=== PATIENT | female | born 1990 | race Caucasian/White ===

== ENCOUNTER → 2021-11-26 12:56 | Outpatient (BNVA) | payer OTHER, SELFPAY | PROVIDERS: PCP Internal Medicine; Visit Provider Psychiatry & Neurology Neurology ==

== ENCOUNTER → 2022-12-30 12:15 | Outpatient (BNVA) | payer OTHER, SELFPAY | PROVIDERS: PCP Internal Medicine; Visit Provider Psychiatry & Neurology Neurology | DX: G47.411 Narcolepsy with cataplexy (principal); G47.33 Obstructive sleep apnea (adult) (pediatric) ==

== ENCOUNTER 2023-04-28 07:33 | Outpatient (AMB) | payer OTHER, SELFPAY ==
--- NOTE | 2023-04-28 07:37 | A.OFFVIS_ITS ---
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 Her baby is doing well at 6 mths but has COVID now . she stayed on Xyrem throughout her but was off provigil for 3 years while she was trying to become . Prior to that she was stable on provigil 200mg qam and q noon for 10 years. She was taking the Xyrem 500 mg per mL in 3 doses she takes 3 mg at bedtime she takes a 2nd dose 3 mg and a 3rd dose 3 mg.Now she is on Xywav 4.5mg grams 2 doses - started 2 days ago . she still has some fatigue she is compliant with her CPAP. SInce her sleep is good. she wants to try for another baby and does not want to switch to Xywav . No abnormal sleep behavior. she is on provigil 200 mg as needed. she reports mild difficulty with cognition. [facility] Medical History Anxiety Narcolepsy and cataplexy Obstructive sleep apnea Polycystic ovarian disease Surgical History Hx of cholecystectomy No pertinent past surgical history Family History Father HTN (hypertension) Mother High cholesterol Social History Alcohol intake: never Patient Tobacco Use Status: Never used Tobacco Use of substances other than those prescribed or required for medical reasons: No Physical Exam Const Other: speech normal mood stable General: cooperative Orientation/consciousness: patient oriented x3 Neuro General: patient oriented x3 Assessment & Plan Assessment & Plan (1) Narcolepsy and cataplexy: Code(s): G47.411 - Narcolepsy with cataplexy (2) Obstructive sleep apnea: Code(s): G47.33 - Obstructive sleep apnea (adult) (pediatric) Plan Continue prozac 40mg qd Xywav 500mg/ml 4.5 mg in 2 doses - wants to switch to xyrem when she is planning for her second Continue CPAP - compliance stressed Restart provigil 200mg qam and second dose 3 hrs later Coding Level of Care Code Tele Est Pt Level 4 (87932) Diagnoses Narcolepsy and cataplexy G47.411 Obstructive sleep apnea G47.33 Time Spent (min) 22
== END 2023-04-28 09:04 | disposition home or self-care (01) ==
PROVIDERS: Visit Provider Psychiatry & Neurology Neurology
DX: G47.411 Narcolepsy with cataplexy (principal); G47.33 Obstructive sleep apnea (adult) (pediatric)
CPT/HCPCS: 99214

== ENCOUNTER → 2023-04-28 07:33 | Outpatient (BNVA) | payer OTHER, SELFPAY | PROVIDERS: Visit Provider Psychiatry & Neurology Neurology | DX: G47.411 Narcolepsy with cataplexy (principal); G47.33 Obstructive sleep apnea (adult) (pediatric) ==

== ENCOUNTER 2023-12-15 07:14 | Outpatient (AMB) | payer OTHER, SELFPAY ==
[2023-12-15 07:41] VITALS: BP 112/80; PULSE 103; RESP 16; O2SAT 99; BMI 40.2
--- NOTE | 2023-12-15 07:41 | A.OFFVIS_ITS ---
Intake Vital Signs 12/15/23 07:41 12/15/23 08:26 Height 5 ft 2 in Weight 220 lb BMI 40.2 BP 112/80 118/82 Blood Pressure Location Rt brachial Lt brachial Position Sitting Sitting Respiration 16 Pulse 103 H Pulse Source Pulse Oximeter Pulse Oximetry (%) 99 Oxygen Delivery Method Room Air Intake Visit Reasons: f/u for XXywav 500mg/ml PA-LVM Intake Note: Pt presents to the office for med follow up. Label Fuser Tender Required: No Allergies No Known Allergies Allergy (Verified 12/15/23 07:41) Medication List - Last Reconciled 12/15/23 by Mary Mccarty MD buspirone 5 mg PO BID fluoxetine 40 mg PO DAILY metformin 500 mg PO DAILY modafinil (Provigil) 1 tab qam and second tab 3 hrs later orally every morning; omeprazole 20 mg PO BID sodium,calcium,mag,pot oxybate 0.5 gram/mL (Xywav) 4.5 grams (9 mL) PO BID HPI HPI Comments History of Present Illness Details 33-year-old female with narcolepsy with cataplexy and obstructive sleep apnea calls for follow-up. Her baby is doing well 14 months she is on Xywav 4.5 gm 2 times a night ans is doing well. she stayed on Xyrem throughout her but was off provigil for 3 years while she was trying to become . Prior to that she was stable on provigil 200mg qam and q noon for 10 years. she is compliant with her CPAP. SInce her sleep is good. No abnormal sleep behavior. she reports mild difficulty with cognition- very concerned. [facility] Medical History (Updated 12/15/23 @ 08:03 by Mary Mccarty MD) Memory loss Pineal gland cyst Anxiety Obstructive sleep apnea Polycystic ovarian disease Narcolepsy and cataplexy Surgical History Hx of cholecystectomy No pertinent past surgical history Family History Father HTN (hypertension) Mother High cholesterol Social History Alcohol intake: never Patient Tobacco Use Status: Never used Tobacco Questionnaire [place] Sleepiness Scale Questions Sitting and reading: would never doze Watching TV: slight chance of dozing Sitting inactive in a theater, movie etc.: slight chance of dozing As a passenger in a car for an hour without break: moderate chance of dozing Lying down in the afternoon when circumstances permit: high chance of dozing Sitting and talking to someone: would never doze Sitting quietly after lunch without alcohol: slight chance of dozing In a car, while stopped for a few minutes in the traffic: would never doze ESS < 10: normal, ESS > 12: pathologic: 8 Physical Exam Vital Signs: Last Vital Signs Pulse 103 H 12/15/23 07:41 Resp 16 12/15/23 07:41 BP 112/80 12/15/23 07:41 Pulse Ox 99 12/15/23 07:41 Oxygen Delivery Method Room Air 12/15/23 07:41 BMI result Body Mass Index 40.2 Const General: cooperative and comfortable Nutritional Appearance: obese Orientation/consciousness: patient oriented x3 Eyes Pupils: Equal, round and reactive pupils present Neuro General: patient oriented x3, tone normal, moves all extremities and no focal motor deficits Cranial nerves: Yes Facial sensation intact/muscles of mastication intact, Yes Equal, round and reactive pupils present, Yes Bilaterally intact EOM present, Yes Nystagmus not present, Yes Normal facial strength present, Yes Midline tongue present and Yes Symmetric palate elevation present Cognition (Neuro): normal cognition Gait exam (Neuro): Normal gait present Orientation What is the (year) (season) (date) (day) (month)?: year, season, day and month Where are we (state) (county) (town or city) (hospital) (floor)?: state, county, town or city, hospital/clinic and floor Registration Name of 3 unrelated objects clearly and slowly, then ask patient to repeat all 3 of them. (1st repeat determines score. Make sure they can repeat all three): object 1, object 2 and object 3 Attention & Calculation (CHOOSE ONE) Spell WORLD backwards (DLROW): 5 letters Recall Ask patient to repeat the 3 items from question #3.: object 1, object 2 and object 3 Language Show patient a wristwatch & ask what it is. Repeat for pencil.: watch and pencil Ask the patient to repeat the phrase 'No ifs, ands, or buts' after you.: correct Ask the patient to 'take a piece of paper with their right hand' 'fold paper in half' 'place paper on floor': take paper in right hand, fold paper in half and place paper on floor Print the sentence 'CLOSE YOUR EYES' on a piece. If patient actually closes eyes then score.: followed written direction Give patient a blank piece of paper & ask to write a sentence. Score if it contains a noun & verb.: sentence contains subject and verb Ask patient to copy figure of intersecting pentagons exactly. Score if all 10 angles & 2 intersects are included.: all 10 angles present & 2 are intersected Score Score: 29 Assessment & Plan Assessment & Plan (1) Narcolepsy and cataplexy: Code(s): G47.411 - Narcolepsy with cataplexy (2) Obstructive sleep apnea: Code(s): G47.33 - Obstructive sleep apnea (adult) (pediatric) (3) Pineal gland cyst: Code(s): E34.8 - Other specified endocrine disorders Plan Continue prozac 40mg qd Xywav 500mg/ml 4.5 mg in 2 doses - wants to switch to xyrem when she is planning for her second Continue CPAP - compliance stressed I will check her Vit B 12, ESR TSH VIT D CBC CMP Hg A 1 c Orders: Orders Comprehensive Met. Panel Today R41.3 - Other amnesia Complete Blood Count Auto Diff Today R41.3 - Other amnesia MR head/brain wo con Today E34.8 - Other specified endocrine disorders Erythrocyte Sedimentation Rate Today R41.3 - Other amnesia TSH reflex Free T4 Today R41.3 - Other amnesia Vitamin B12 and Folate Today R41.3 - Other amnesia AMB Hemoglobin A1c Today R41.3 - Other amnesia, Z13.9 - Encounter for screening, unspecified Medications: Discontinued modafinil (Provigil) Discontinued Reason: Patient no longer taking 1 tab qam and second tab 3 hrs later orally every morning; 60 tabs 5RF Coding Level of Care Code Est Pt Level 5 (02275) Diagnoses Narcolepsy and cataplexy G47.411 Obstructive sleep apnea G47.33 Pineal gland cyst E34.8
[2023-12-15 08:26] VITALS: BP 118/82
== END 2023-12-15 08:23 | disposition home or self-care (01) ==
PROVIDERS: PCP Internal Medicine; Visit Provider Psychiatry & Neurology Neurology
DX: G47.411 Narcolepsy with cataplexy (principal); G47.33 Obstructive sleep apnea (adult) (pediatric); E34.8 Other specified endocrine disorders
CPT/HCPCS: 99214

== ENCOUNTER → 2023-12-15 07:14 | Outpatient (BNVA) | payer OTHER, SELFPAY | PROVIDERS: PCP Internal Medicine; Visit Provider Psychiatry & Neurology Neurology ==

== ENCOUNTER 2023-12-15 08:07 | Outpatient (REF) | payer OTHER, SELFPAY ==
[2023-12-15 17:43] LABS: MANUAL DIFF FLAG NO
[2023-12-15 18:19] LABS: Alanine Aminotransferase 18 U/L (0-31); Albumin Level 4.5 g/dL (3.5-5.0); Alkaline Phosphatase 83 U/L (39-117); Anion Gap 13 (12-20); Aspartate Amino Transferase 13 U/L (5-31); Bilirubin Total 0.3 mg/dL (0.0-1.0); Blood Urea Nitrogen 16 mg/dL (9-16); Calcium 10.1 mg/dL (8.4-10.2); Carbon Dioxide 27 mmol/L (22-29); Chloride 105 mmol/L (96-108); Estimated Glomerular Filt Rate > 60; Glucose Random 92 mg/dL (60-115); Potassium 4.1 mmol/L (3.3-5.1); Sodium 141 mmol/L (135-145)
[2023-12-15 18:29] LABS: Basophils Absolute Auto 0.1 X10*3/uL (0.0-0.2); Basophils Percent Auto 0.6 % (0-2); Eosinophils Absolute Auto 0.4 X10*3/uL (0.0-0.4); Eosinophils Percent Auto 4.3 % (0-4); Hematocrit 41.9 % (37.0-47.0); Hemoglobin 14.4 g/dl (12.0-16.0); Imm Gran Abs Auto 0.03 X10*3/uL (0.00-0.03); Imm Gran Pct Auto 0.4 % (0.0-0.4); Mean Corpuscular HGB Conc 34.4 g/dl (31.0-35.0); Mean Corpuscular Hemoglobin 29.8 pg (27.0-33.0); Mean Corpuscular Volume 86.6 fL (80.0-98.0); Mean Platelet Volume 10.6 fL (9.4-12.3); Monocytes Absolute Auto 0.4 X10*3/uL (0.1-1.2); Neutrophils Absolute Auto 5.6 x10*3/uL (2.0-8.3); Neutrophils Percent Auto 65.7 % (45-73); Platelet Count 323 X10*3/uL (160-400); Red Blood Count 4.84 X10*6/uL (4.20-5.50); Red Cell Distribution Width 11.9 % (11.0-16.0); White Blood Count 8.5 X10*3/uL (4.8-10.8)
[2023-12-15 18:33] LABS: TSH reflex Free T4 1.24 uIU/mL (0.32-4.0)
[2023-12-15 19:00] LABS: Folate > 20.0 ng/mL (> or = 4.0); Vitamin B12 436 pg/mL (200-900)
[2023-12-15 19:10] LABS: Erythrocyte Sedimentation Rate 17 MM/HR (0-20)
== END 2023-12-15 08:08 | disposition home or self-care (01) ==
LOC: HO.HKASLDS 08:07
PROVIDERS: Visit Provider Psychiatry & Neurology Neurology
DX: R41.3 Other amnesia (principal); G47.411 Narcolepsy with cataplexy; G47.33 Obstructive sleep apnea (adult) (pediatric); E34.8 Other specified endocrine disorders
CPT/HCPCS: 36415; 80053; 82607; 82746; 84443; 85025; 85652

== ENCOUNTER 2024-04-23 13:52 | Outpatient (AMB) | payer OTHER, SELFPAY ==
--- NOTE | 2024-04-23 14:01 | A.OFFVIS_ITS ---
Vital Signs 04/23/24 14:02 Height 5 ft 2 in Weight 222 lb BMI 40.6 BP 120/70 Blood Pressure Location Rt brachial Position Sitting Respiration 16 Pulse 86 Pulse Source Pulse Oximeter Pulse Oximetry (%) 96 Oxygen Delivery Method Room Air Intake Visit Reasons: 4 Month F/U - Confirmed Intake Note: Pt presents to the office for a 4 month follow up for narcolepsy and cataplexy. Order Fulfillment Specialist Required: No Allergies No Known Allergies Allergy (Verified 04/23/24 14:02) HPI Comments Details: 33-year-old female with narcolepsy with cataplexy and obstructive sleep apnea comes for follow-up. Her baby is doing well 18 months Patient is again 17 weeks she wants to continue but has concerns about glucose control . she is on Xywav 4.5 gm 2 times a night and is doing well.she feels xyrem was better. she stayed on Xyrem throughout her . she is compliant with her CPAP. SInce her sleep is good. No abnormal sleep behavior. [facility] Medical History Pineal gland cyst Memory loss Pineal gland cyst Anxiety Obstructive sleep apnea Polycystic ovarian disease Narcolepsy and cataplexy Surgical History Hx of cholecystectomy No pertinent past surgical history Family History Father HTN (hypertension) Mother High cholesterol Social History Alcohol intake: never Patient Tobacco Use Status: Never used Tobacco Physical Exam Vital Signs: Last Vital Signs Pulse 86 04/23/24 14:02 Resp 16 04/23/24 14:02 BP 120/70 04/23/24 14:02 Pulse Ox 96 04/23/24 14:02 Oxygen Delivery Method Room Air 04/23/24 14:02 BMI result Body Mass Index 40.6 Const General: cooperative and comfortable Nutritional Appearance: obese Orientation/consciousness: patient oriented x3 Eyes Pupils: Equal, round and reactive pupils present Neuro General: patient oriented x3, tone normal, moves all extremities and no focal motor deficits Cranial nerves: Yes Facial sensation intact/muscles of mastication intact, Yes Equal, round and reactive pupils present, Yes Bilaterally intact EOM present, Yes Nystagmus not present, Yes Normal facial strength present, Yes Midline t ongue present and Yes Symmetric palate elevation present Cognition (Neuro): normal cognition Gait exam (Neuro): Normal gait present Assessment & Plan Assessment & Plan (1) Narcolepsy and cataplexy: Code(s): G47.411 - Narcolepsy with cataplexy Category: Medical (2) Obstructive sleep apnea: Code(s): G47.33 - Obstructive sleep apnea (adult) (pediatric) Category: Medical (3) Pineal gland cyst: Code(s): E34.8 - Other specified endocrine disorders Category: Medical Plan Continue prozac 40mg qd Xywav 500mg/ml 4.5 mg in 2 doses Continue CPAP - compliance stressed will consider repeat sleep test Coding Level of Care Code Est Pt Level 4 (35678) Diagnoses Narcolepsy and cataplexy G47.411 Obstructive sleep apnea G47.33 Pineal gland cyst E34.8
[2024-04-23 14:02] VITALS: BP 120/70; PULSE 86; RESP 16; O2SAT 96; BMI 40.6
== END 2024-04-23 14:24 | disposition home or self-care (01) ==
PROVIDERS: PCP Internal Medicine; Visit Provider Psychiatry & Neurology Neurology
DX: G47.411 Narcolepsy with cataplexy (principal); G47.33 Obstructive sleep apnea (adult) (pediatric); E34.8 Other specified endocrine disorders
CPT/HCPCS: 99214

== ENCOUNTER → 2024-04-23 13:52 | Outpatient (BNVA) | payer OTHER, SELFPAY | PROVIDERS: PCP Internal Medicine; Visit Provider Psychiatry & Neurology Neurology ==

== ENCOUNTER 2024-11-26 13:41 | Outpatient (AMB) | payer OTHER, SELFPAY ==
--- NOTE | 2024-11-26 13:48 | A.OFFVIS_ITS ---
Vital Signs 11/26/24 13:50 Height 5 ft 2 in Weight 214 lb BMI 39.1 BP 122/84 Blood Pressure Location Rt brachial Position Sitting Pulse 88 Pulse Source Pulse Oximeter Pulse Oximetry (%) 98 Oxygen Delivery Method Room Air Intake Visit Reasons: 6 Month F/U Intake Note: Patient following up on narcolepsy compliance report 11/25/24 scanned. Allergies No Known Allergies Allergy (Verified 11/26/24 13:52) Medication List - Last Reconciled 11/26/24 by Mary Mccarty MD fluoxetine 40 mg PO DAILY metformin 500 mg PO DAILY omeprazole 20 mg PO BID sodium,calcium,mag,pot oxybate 0.5 gram/mL (Xywav) 4.5 grams (9 mL) PO BID HPI Comments Details: 34-year-old female with narcolepsy with cataplexy and obstructive sleep apnea comes for follow-up. Her baby is doing well 12years and her second daughter is 9 weeks. He rpregnancy was uneventful she is on Xywav 4.5 gm 2 times a night and is doing well. she is compliant with her CPAPBut because of ehr baby sometimes she falls asleep on the couch . No abnormal sleep behavior. [facility] Medical History Pineal gland cyst Memory loss Pineal gland cyst Anxiety Obstructive sleep apnea Polycystic ovarian disease Narcolepsy and cataplexy Surgical History Hx of cholecystectomy No pertinent past surgical history Family History Father HTN (hypertension) Mother High cholesterol Social History Alcohol intake: never Patient Tobacco Use Status: Never used Tobacco Physical Exam Vital Signs: Last Vital Signs Pulse 88 11/26/24 13:50 BP 122/84 11/26/24 13:50 Pulse Ox 98 11/26/24 13:50 Oxygen Delivery Method Room Air 11/26/24 13:50 BMI result Body Mass Index 39.1 Const General: cooperative and comfortable Nutritional Appearance: obese Orientation/consciousness: patient oriented x3 Neuro General: patient oriented x3, tone normal, moves all extremities and no focal motor deficits Cognition (Neuro): normal cognition Gait exam (Neuro): Normal gait present Assessment & Plan Assessment & Plan (1) Narcolepsy and cataplexy: Code(s): G47.411 - Narcolepsy with cataplexy Category: Medical (2) Obstructive sleep apnea: Code(s): G47.33 - Obstructive sleep apnea (adult) (pediatric) Category: Medical (3) Pineal gland cyst: Code(s): E34.8 - Other specified endocrine disorders Category: Medical Plan Continue prozac 40mg qd Xywav 500mg/ml 4.5 mg in 2 doses Continue CPAP - compliance stressed Repeat Home sleep test MRI brain to monitor pineal gland cyst . Orders: Orders RT home sleep study Today G47.33 - Obstructive sleep apnea (adult) (pediatric) MR head/brain wo/w con Today E34.8 - Other specified endocrine disorders Medications: Refilled sodium,calcium,mag,pot oxybate 0.5 gram/mL (Xywav) administer the first dose at bedtime and the second dose 2.5-4 hours later 4.5 grams (9 mL) PO BID 540 mL 3RF narcolepsy Coding Level of Care Code Est Pt Level 4 (70442) Complex EM visit Add On G2211 Diagnoses Narcolepsy and cataplexy G47.411 Obstructive sleep apnea G47.33 Pineal gland cyst E34.8
[2024-11-26 13:50] VITALS: BP 122/84; PULSE 88; O2SAT 98; BMI 39.1
--- OUTSIDE RECORDS SUMMARY | 2024-11-26 15:39 | XMS_ITS | Data Portability ---
Author Organization [facility]ay [facility], [address] Address [address] [place] [address] Care Team Providers Care Physics Instructor Name Role Phone [facility] Primary Care Provider Assessment No assessment recorded. Plan of Treatment Reminders Order Date Submit Date Provider Last Modified By Organization Details Last Modified Time Details Appointments None recorded. Lab None recorded. Referral None recorded. Procedures None recorded. Surgeries None recorded. Imaging None recorded. Medication Orders albuterol sulfate HFA 90 mcg/actuati on aerosol inhaler 2023 024 [facility]/Pharmacy #[id number], [address] [place] [address], [id number], 4 16:42:05 benzonatate 100 mg capsule 2022 023 [email or web address] 2 [facility]/Pharmacy #[id number], [address] [place] [address], [id number], 4 16:06:31 albuterol sulfate HFA 90 mcg/actuati on aerosol inhaler 2022 023 [facility]/Pharmacy #[id number], [address] [place] [address], [id number], 3 18:55:02 prednisone 20 mg tablet 2022 023 [email or web address] 2 [facility]/Pharmacy #[id number], [address] [place] [address], [id number], 4 16:08:23 Patient TargetsNo targets recorded. Patient Instructions Encounter Date Encounter Id Patient Instructions Last Modified By Organization Details Last Modified Time 07/01/2023 [id number] cough: care instructions Not available 07/01/2023 18:54:58 bronchitis: care instructions Not available 07/01/2023 18:54:57 07/26/2024 [id number] laryngitis: care instructions [email or web address] Not available 07/26/2024 16:42:03 Reason for Referral None Reported. Problems Name Problem SNOMED Code Status Onset Date Resolution Date Notes Provider Name and Address Organization Details Recorded Time Narcolepsy 66390141 Active 2022 ELGIN WATTS null, PA - [facility] 3 18:28:37 Obese 416154947 Active 2022 ELGIN SINOV null, PA - [facility] 3 18:28:45 Polycystic ovary syndrome 254078652 Active 2022 ELGINDima WATTS null, PA - [facility] 3 18:28:50 Anxiety 73531161 Active 2022 ELGIN STEFANIE null, PA - [facility] 3 18:28:57 Gestational diabetes mellitus 44496503 Active Rula Khan null, PA - [facility] 4 16:09:45 Respiratory tract congestion and cough 231778499 Active 2023 Cassandra Sauceda NP [address] [facility] [place], [address] [facility] - [facility] 4 16:41:23 Problem Notes None recorded. Procedures Surgical History Date Name Laterality Status Provider Name and Address Organization Details Recorded Time cholecystectomy completed ELGIN WATTS PA - [facility] 07/01/2023 18:31:34 Imaging Results None recorded. Procedure Notes None recorded. Medical Equipment None Reported. Allergies No known drug allergies Medications Name Sig Start Date Stop Date Status Note LastModified by Organization Details LastModified Time freestyle 28g lancets USE DIRECTED TO TEST BLOOD SUGAR FOUR TIMES A DAY DURING 07/26 completed Not Available Not Available Not Available fluoxetine 40 mg capsule TAKE 1 CAPSULE BY MOUTH EVERY DAY active Not Available Not Available No t Available buspirone 5 mg tablet TAKE 1 TABLET BY MOUTH TWICE A DAY FOR 30 DAYS 07/26 completed Not Available Not Available Not Available metformin 500 mg tablet TAKE 1 TABLET BY MOUTH EVERYDAY AT BEDTIME 07/26 completed Not Available Not Available Not Available azelastine 0.05 % eye drops INSTILL 1 DROP INTO AFFECTED EYE TWICE A DAY 07/01 completed Not Available Not Available Not Available nystatin 100,000 unit/mL oral suspension TAKE 5 ML BY MOUTH 4 TIMES A DAY FOR FOR 7 DAYS. SWISH AND SWALLOW 07/26 completed Not Available Not Available Not Available fluconazole 150 mg tablet TAKE ONE TABLET BY MOUTH ONCE A SINGLE DOSE 07/26 completed Not Available Not Available Not Available FreeStyle Lancets 28 gauge GLUCOSE MONITORIN G 4 TIMES A DAY DURING active Not Available Not Available No t Available prednisone 20 mg tablet Take 1 tablet every day by oral route for 5 days. 07/26 completed Not Available Not Available Not Available metronidazo le 500 mg tablet TAKE 1 TABLET BY MOUTH EVERY 12 HOURS FOR 7 DAYS 07/26 completed Not Available Not Available Not Available aspirin 81 mg tablet,jonathan yed release TAKE 2 TABLETS BY MOUTH EVERY DAY active Not Available Not Available No t Available amoxicillin 500 mg tablet TAKE 1 TABLET BY MOUTH TWICE A DAY FOR 10 DAYS 07/01 completed Not Available Not Available Not Available modafinil 200 mg tablet TAKE 1 TABLET BY MOUTH EVERY MORNING AND 1 TABLET 3 HOURS LATER 07/26 completed Not Available Not Available Not Available benzonatate 100 mg capsule Take 1 capsule 3 times a day by oral route for 5 days. 07/26 completed Not Available Not Available Not Available ursodiol 300 mg capsule TAKE 1 CAPSULE BY MOUTH 3 TIMES A DAY 07/26 completed Not Available Not Available Not Available omeprazole 20 mg capsule,del ayed release TAKE 1 CAPSULE BY MOUTH TWICE A DAY 07/26 completed Not Available Not Available Not Available aspirin 81 mg chewable tablet CHEW 2 TABLETS ONCE DAILY CONTINUE UNTIL 2 WEEKS POSTPARTU M 07/26 completed Not Available Not Available Not Available letrozole 2.5 mg tablet TAKE 1 TABLET BY MOUTH DAILY STARTING ON CYCLE DAY 3 AND ENDING ON CYCLE DAY 7. *NOT COVERED 07/26 completed Not Available Not Available Not Available albuterol sulfate HFA 90 mcg/actuati on aerosol inhaler Inhale 2 puffs 3 times a day by inhalatio n route as needed for 5 days. 2023 active Not Available Not Available Not Avai lable hydroxyzine HCl 10 mg tablet TAKE 1 TABLET BY MOUTH 4 TIMES A DAY FOR 14 DAYS 07/01 completed Not Available Not Available Not Available sodium oxybate 500 mg/mL oral solution 07/01 completed Not Available Not Available Not Available Alcohol Prep Pads PLEASE USE DIRECTED FOR GLUCOSE MONITORIN G FOUR TIMES DAILY active Not Available Not Available No t Available nitrofurant oin monohydrate /macrocryst als 100 mg capsule TAKE 1 CAPSULE BY MOUTH TWICE A DAY FOR 5 DAYS 07/01 completed Not Available Not Available Not Available FreeStyle Lite Meter kit active Not Available Not Available Not Available OneTouch Verio test strips USE TO TEST BLOOD SUGARS 4 TIMES DAILY active Not Available Not Available No t Available OneTouch Verio Flex Meter TO TEST 4X DAILY ICD active Not Available Not Available No t Available OneTouch Delica Plus Lancet 30 gauge TEST 4 TIMES A DAY 07/26 completed Not Available Not Available Not Available Xywav 0.5 gram/mL oral solution 07/26 completed Not Available Not Available Not Available Paxlovid 300 mg (150 mg x 2)-100 mg tablets in a dose pack FOLLOW PACKAGE INSTRUCTI ONS. ALL 3 TABS TAKEN TOGETHER TWICE DAILY FOR 5 DAYS, WITH OR WITHOUT FOOD 07/01 completed Not Available Not Available Not Available Vitals Date Recorded Body height Body mass index (BMI) Body weight Pain severity - 0-10 verbal numeric rating [Score] - Reported Respiratory rate Heart rate Body temperature Oxygen saturation Oxygen saturation in Arterial blood by Pulse oximetry Systolic blood pressure Diastolic blood pressure Provider Name and Address Organization Details Last Updated DateTime 3 157.48 cm 41 kg/m2 703827. 69 g 0 19 /min 87 /min 98.7 [degF] 98 % 98 % 120 mm[Hg] 76 mm[Hg] ELGIN WATTS PA - [facility] 3 18:34:53 Date Recorded Body height Body mass index (BMI) Body weight Oxygen saturation Oxygen saturation in Arterial blood by Pulse oximetry Heart rate Body temperature Respiratory rate Systolic blood pressure Diastolic blood pressure Provider Name and Address Organization Details Last Updated DateTime 4 157.48 cm 38.8 kg/m2 84577.5 8 g 97 % 97 % 78 /min 97.5 [degF] 18 /min 103 mm[Hg] 71 mm[Hg] Rula Khan [place] - [facility] 16:04:01 Social History Question Answer Notes LastModified by Organizat ion Details LastModified Time Tobacco Smoking Status Never Smoker ELGIN WILEYBISI almanza, PA - [facility] 07/01/2023 18:31:14 What Is Your Level Of Alcohol Consumption? None Information not available 07/01/2023 Are You Currently Employed? Yes [email or web address] Information not available 07/26/2024 Have You Had A Flu Shot This Season? Yes [email or web address] Information not available 07/26/2024 If No, Would You Like A Flu Shot Today? No [email or web address] Information not available 07/26/2024 What Was The Date Of Your Most Recent Tobacco Screening? 07/26/2024 [email or web address] Information not available 07/26/2024 What Is Your Relationship Status? [email or web address] Information not available 07/26/2024 Do You Use Any Illicit Or Recreational Drugs? No Information not available 07/01/2023 Have You Recently Traveled Abroad? No Information not available 07/01/2023 Do You Or Have You Ever Used Any Other Forms Of Tobacco Or Nicotine? No [email or web address] Information not available 07/26/2024 Sex: Unknown Functional Status None recorded. Mental Status None recorded. Family History Relationship Description Onset Age of this Age Resolved Age Notes LastModified by Organization Details LastModified Time Father Hypertensive disorder [email or web address] Not available 07/01 18:29:58 Mother Hyperlipidem ia [email or web address] Not available 07/26 16:10:18 Medical History No medical history recorded. Gynecological History Statement/Question Response Date of LMP 12/25/2023 Is there any chance of ? Yes LMP Approximate Obstetrics History GPAL:G 0 P 0 0 0 0 Immunizations Vaccine Type Date Status Note Provider Nam e and Address Organization Details Recorded Time COVID-19, mRNA, LNP-S, PF, 100 mcg/0.5mL dose or 50 mcg/0.25mL dose 1 completed Rula Khan null, PA - [facility] 07/26/2024 16:05:41 COVID-19, mRNA, LNP-S, PF, 100 mcg/0.5mL dose or 50 mcg/0.25mL dose 1 completed Rula Khan null, PA - [facility] 07/26/2024 16:05:41 COVID-19, mRNA, LNP-S, PF, 100 mcg/0.5mL dose or 50 mcg/0.25mL dose 1 completed Rula Khan null, PA - [facility] 07/26/2024 16:05:41 COVID-19, mRNA, LNP-S, bivalent, PF, 50 mcg/0.5 mL or 25mcg/0.25 mL dose 2 completed Rula Khan null, PA - [facility] 07/26/2024 16:05:41 Tdap 2 completed Rula Khan null, PA - [facility] 07/26/2024 16:05:41 Influenza, split virus, trivalent, preservative 2 completed Rula Khan null, PA - [facility] 07/26/2024 16:05:41 Influenza, split virus, quadrivalent, PF 1 completed Rula Khan null, PA - [facility] 07/26/2024 16:05:41 Past Encounters Encounter ID Performer Location Encounter Start Date Encounter Closed Date Diagnosis/Indication Diagnosis SNOMED-CT Code Diagnosis ICD10 Code Diagnosis Note [id number] [place] [address] [facility] [address] [place] [address] 07/01/2023 18:19:17 07/01/2023 18:56:08 Acute bronchitis 84412145 J20.9 Acute bronchitis is a condition of the lower airway with self-limit ed inflammati on that will eventually resolve on it's own. It is usually caused by a viral infection in 95% of cases, therefore an antibiotic is not needed. Treatment for bronchitis is aimed at focusing on helping to relieve your symptoms and you can implement the following remedies below, as long as they do not interfere with your current medication s, past medical history, or go against advice you have received from your primary care provider and/or a specialist . If you are concerned you can always ask a pharmacist your primary care provider prior to their use. [id number] [place] [address] [facility] [address] [place] [address] 07/26/2024 15:52:59 07/26/2024 16:54:36 Respiratory tract congestion and cough 420999413 R09.89 Laryngitis is an inflammati on of the voice box (larynx) that causes your voice to become raspy or hoarse. Most of the time, laryngitis comes on quickly and lasts as long as 2 weeks. It is caused by overuse, irritation , or infection of the vocal cords inside the larynx.Edmund e of the most common causes are a cold, the flu, or allergies. Loud talking, shouting, cheering, or singing also can cause laryngitis . Stomach acid that backs up into the throat also can make you lose your voice.Rest ing your voice and taking other steps at home can help you get your voice back.Follo w-up care is a grullon part of your treatment and safety. Be sure to make and go to all appointmen ts, and call your doctor if you are having problems. It's also a good idea to know your test results and keep a list of the medicines you take.How can you care for yourself at home?Rest your voice. You do not have to stop speaking, but use your voice as little as possible. Speak softly but do not whisper; whispering can bother your larynx more than speaking softly. Avoid talking on the telephone or trying to speak loudly.Dri nk plenty of water to keep your throat moist.Befo re you use cough and cold medicines, check the label. They may not be safe for young children or for people with certain health problems.T ry to keep stomach acid from backing up into your throat. Do not eat just before bedtime. Reduce the amount of coffee and alcohol you drink, and eat healthy foods. Taking over-the-c ounter acid reducers can help when these steps are not enough. In some cases, you may need prescripti on medicine.T ry not to clear your throat. This can cause more irritation of your larynx. Take an over-the-c ounter cough suppressan t (if your doctor recommends it) if you have a dry cough that does not produce mucus.Use saline (saltwater ) nasal washes to help keep your nasal passages open and wash out mucus and allergens. You can buy saline nose sprays at a grocery store or drugstore. Follow the instructio ns on the package. Or you can make your own at home. Add 1 teaspoon of non-iodize d salt and 1 teaspoon of baking soda to 2 cups of distilled or boiled and cooled water. Fill a squeeze bottle or neti pot with the nasal wash. Then insert the tip into your nostril, and lean over the sink. With your mouth open, gently squirt the liquid. Repeat on the other side.Follo w your doctor's directions for treating the condition that caused you to lose your voice. If your doctor prescribed antibiotic s, take them as directed. Do not stop taking them just because you feel better. You need to take the full course of antibiotic s.Do not smoke or allow others to smoke around you. If you need help quitting, talk to your doctor about stop-smoki ng programs and medicines. These can increase your chances of quitting for good. Health Concerns Section Related Observation LastModified by Organization Detai ls LastModified Time None Recorded Concern Status LastModified by Organization Details LastModified Time None Recorded Advance Directives Directive None Recorded Payers Encounter Date Sequence Insurance Name Policy Number Policy Leo Covered Member ID Leo Member ID Guarantor Name 07/01/2023 1 [facility] Sherron Aquino [id number] Sherron Aquino 07/26/2024 1 [facility] Sherron Aquino [id number] Sherron Aquino Notes Date Note Type Note Provider Name and Address Organization Details Recorded Time 3 text/html CoughReported bypatient.source of patient informationInformation obtained from patient; Patient arrived at Urgent Care ambulatory Quality:intermittent; symptoms worse with lying down Severity:moderate Duration:4 days Context:Patient denies vaping; non-smoker Associated Symptoms:no fever; no chest pain; no heartburn; no nausea; no vomiting; no edema; no agitation; no wheezing; no post nasal drip;chills Bhupinder Montanez MD [address] [place], [address], [facility] 07/01/2023 19:02:29 text/html CoughReported bypatient.source of patient informationInformation obtained from patient; Patient arrived at Urgent Care ambulatory Quality:barking;dry; symptoms worse with lying down Severity:moderate Duration:30 days Timing:gradual Context:family members ill with similar symptoms; Patient denies vaping; non-smoker Modifying Factors:at night Associated Symptoms:no fever; no chills; no chest pain; no heartburn; no nausea; no vomiting; no edema; no agitation; no wheezing; no post nasal drip Cassandra Sauceda NP [address], [address], [facility] 07/27/2024 18:15:23 OBGyn Episode No OBEpisode recorded.
== END 2024-11-26 14:20 | disposition home or self-care (01) ==
PROVIDERS: PCP Internal Medicine; Visit Provider Psychiatry & Neurology Neurology
DX: G47.411 Narcolepsy with cataplexy (principal); G47.33 Obstructive sleep apnea (adult) (pediatric); E34.8 Other specified endocrine disorders
CPT/HCPCS: 99214

== ENCOUNTER → 2024-11-26 13:41 | Outpatient (BNVA) | payer OTHER, SELFPAY | PROVIDERS: PCP Internal Medicine; Visit Provider Psychiatry & Neurology Neurology | DX: G47.411 Narcolepsy with cataplexy (principal); G47.33 Obstructive sleep apnea (adult) (pediatric); E34.8 Other specified endocrine disorders ==

== ENCOUNTER 2024-12-01 16:02 | Outpatient (REF) | payer OTHER, SELFPAY ==
--- NOTE | ~2024-12-01 | MR_ITS ---
EXAMINATION: MR BRAIN WITHOUT AND WITH CONTRAST CLINICAL INFORMATION: Endocrine disorders. COMPARISON: None available. TECHNIQUE: Multiplanar, multisequence MRI of the brain was obtained before and after the intravenous administration of 10 mL gadolinium. FINDINGS: There is no restricted diffusion seen to suspect any acute or subacute ischemic changes. There is no restricted diffusion either to suspect acute or chronic hemorrhagic products are calcium deposits. There are no T2 FLAIR signal changes in the white matter. The lateral ventricles are symmetrical in size and configuration without enlargement. Normal flow-void signal seen in major cerebral vasculature Postcontrast there is no intra-axial or extra-axial enhancement, mass or edema. No dural enhancement. The sella and the parasellar regions appear unremarkable. Normal flow-void signal seen in the major cerebral vasculature. There is a small polyp or retention cyst right maxillary sinus rest of paranasal sinuses are well-aerated. There is mucoperiosteal thickening right mastoid sinus is noted. MR/MR head/brain wo/w con IMPRESSION: Unremarkable MRI brain without and with contrast. Especially no abnormality seen in the sella or parasellar regions. Incidental finding of a small polyp or retention cyst right maxillary sinus. Mild inflammatory changes right mastoid sinus. Electronically signed by: Juan Hamilton MD 12/03/2024 10:31 AM [facility]
[2024-12-01] MEDS: gadobutroL 10 ML VIAL IVPUSH (18:31)
== END 2024-12-01 16:03 | disposition home or self-care (01) ==
LOC: HO.MRI 16:02
PROVIDERS: PCP Internal Medicine; Visit Provider Psychiatry & Neurology Neurology
DX: E34.8 Other specified endocrine disorders (principal)
CPT/HCPCS: 70553; A9585

== ENCOUNTER → 2024-12-01 16:32 | Outpatient (BNV) | payer OTHER, SELFPAY | PROVIDERS: PCP Internal Medicine; Visit Provider Radiology Diagnostic Radiology | DX: E34.9 Endocrine disorder, unspecified (principal) | CPT/HCPCS: 70553 ==

== ENCOUNTER 2025-04-29 08:58 | Outpatient (AMB) | payer OTHER, SELFPAY ==
[2025-04-29 08:52] VITALS: BP 100/60; PULSE 82; O2SAT 98; BMI 42.4
--- NOTE | 2025-04-29 08:52 | MHC.OFFVIS ---
Vital Signs 04/29/25 08:52 Height 5 ft 2 in Weight 232 lb BMI 42.4 BP 100/60 Blood Pressure Location Rt brachial Position Sitting Pulse 82 Pulse Source Pulse Oximeter Pulse Oximetry (%) 98 Oxygen Delivery Method Room Air Intake Visit Reasons: 6 Month F/U Intake Note: Patient presents 6 month follow up for Narcolepsy/ALLYN [place] Machine Operator Required: No Accompanied by: Self / Same As Patient Allergies No Known Allergies Allergy (Verified 04/29/25 09:06) Medication List - Last Reconciled 04/29/25 by Mary Mccarty MD fluoxetine 40 mg PO DAILY metformin 500 mg PO DAILY modafinil 200 mg PO BID 30 days omeprazole 20 mg PO BID sodium,calcium,mag,pot oxybate 0.5 gram/mL (Xywav) 4.5 grams (9 mL) PO BID trazodone 50 mg PO BEDTIME HPI Comments Details: 34-year-old female with narcolepsy with cataplexy and obstructive sleep apnea comes for follow-up. Her baby is doing well 18 mths years and her second daughter is 7 mths Her was uneventful she is on Xywav 4.5 gm 2 times a night and is doing well.she feels like the xywave is not helping as much as before. she is compliant with her CPAP 90 days compliance -97% AHI 2 CPAP 12 Usage hrs 3 hrs 35 min Her children have been sick for about 1 month and she has wake up multiple times during the night and she forgets to put it on. No abnormal sleep behavior. [facility] Medical History Pineal gland cyst Memory loss Pineal gland cyst Anxiety Obstructive sleep apnea Polycystic ovarian disease Narcolepsy and cataplexy Surgical History Hx of cholecystectomy No pertinent past surgical history Family History Father HTN (hypertension) Mother High cholesterol Social History Alcohol intake: never Patient Tobacco Use Status: Never used Tobacco Physical Exam Vital Signs: Last Vital Signs Pulse 82 04/29/25 08:52 BP 100/60 04/29/25 08:52 Pulse Ox 98 04/29/25 08:52 Oxygen Delivery Method Room Air 04/29/25 08:52 BMI result Body Mass Index 42.4 Const General: cooperative and comfortable Nutritional Appearance: obese Orientation/consciousness: patient oriented x3 Neuro General: patient oriented x3, tone normal, moves all extremities and no focal motor deficits Cognition (Neuro): normal cognition Gait exam (Neuro): Normal gait present Assessment & Plan Assessment & Plan (1) Narcolepsy and cataplexy: Comment: residual frequent arousals and disrupted sleep Code(s): G47.411 - Narcolepsy with cataplexy Category: Medical (2) Obstructive sleep apnea: Comment: low usage hrs due to frequent arousals. Code(s): G47.33 - Obstructive sleep apnea (adult) (pediatric) Category: Medical (3) Pineal gland cyst: Code(s): E34.8 - Other specified endocrine disorders Category: Medical Plan Continue prozac 40mg qd Xywav 500mg/ml 4.5 g in 2 doses - wants to know if she can increase to 12 g /day . she takes sleep aide with it I will trial her on trazadone 50mg qhs Continue CPAP - compliance stressed Provigil 200mg qam and q noon MRI brain to monitor pineal gland cyst . Orders: Referrals Medical Weight Management Referral E28.2 - Polycystic ovarian syndrome, E66.9 - Obesity, unspecified, G47.33 - Obstructive sleep apnea (adult) (pediatric), G47.411 - Narcolepsy with cataplexy Medications: New trazodone 50 mg PO BEDTIME 30 tabs 0RF Coding Level of Care Code Est Pt Level 4 (10853) Complex EM visit Add On G2211 Diagnoses Narcolepsy and cataplexy G47.411 Obstructive sleep apnea G47.33 Pineal gland cyst E34.8
--- OUTSIDE RECORDS SUMMARY | 2025-04-29 09:38 | XMS_ITS | Patient Health Record ---
Author Organization [facility] [place] Address [address] [place], [place] [address] Support Name Relationship Address Phone Rip Clifton Emergency Contact [address] [place] [address] Elodia Sherron Guarantor Unknown Care Team Providers Care Embedded Systems Software Engineer Name Role Phone Fran Yolanda Primary Care Provider Gus Santos Unavailable [phone] Reason For Referral No Information Medications Medication SIG (Take, Route, Fr equency, Duration) Notes Start Date End Date Status Sleep Aid 50 mg 1 tablet at bedtime as needed Orally Once a day Active FLUoxetine HCl 20 MG TAKE ONE CAPSULE BY MOUTH EVERY MORNING; Duration: 30 Active Fluoxetine 20 MG 1 tablet Once a day 09/08/2015 Active Xyrem 500 MG/ML 4.5 ml at bedtime an d again 4 hours later Orally Twice a day; Duration: 90 06/28/2016 Active Provigil 200 MG 1 tablet Orally Twic e a Day; Duration: 30 days 09/12/2015 Active Provigil 200 MG 1 tablet in the morn ing, one at noon Orally twice a day; Duration: 30 days 07/07/2016 Active Ritalin 10 MG 1 tablet Orally Twic e a day; Duration: 30 days 04/20/2016 Active Immunizations Vaccine Route Administration Date Status Comme nts Flucelvax Quadrivelant (Commerical) Unknown 11/22/2017 Refused Problems Problem Type SNOMED Code ICD Code Onset Dates Problem Status W/U Status Risk Notes Problem Obstructive sleep apnea syndrome (58778147) ALLYN (obstructive sleep apnea) (G47.33) Active confirmed She has gained weight. She now weighs the 196 pounds. This brings up the question of obstructive sleep apnea. She is not snoring loudly though once in a white she does snore. Obstructive sleep apnea could interrupt her sleep and make her sleep walk and be awake at night Problem Narcolepsy (77185264) Narcolepsy (G47.419) Active confirmed Problem Sleep walking (53383045) Sleep walking (F51.3) Active confirmed She is still sleep walking sometimes but she is not sleep eating. Problem Obesity (222464075) Obesity (BMI 30-39.9) (E66.9) Active confirmed She has gained weight. Some is diet related. She seems to eat sporadically whenever her fianc is eating big meal. We do also see weight gain in narcoleptics patients. Problem Cataplexy and narcolepsy (970675213) Narcolepsy and cataplexy (G47.411) Active confirmed Sherron is still not doing well with her regimen in terms of narcolepsy and cataplexy. I think she has side effects from Xyrem. She is better since I reduced her first dose, but she wakes after one hour. She does not snore. Encounters Encounter Location Date Provider Diagnosis [facility] - [address] [place], [place] [id number] 03/22/2025 Gus Torres Plan Of Treatment Pending Test Test Name Order Date Sleep Study 07/07/2016 Insurance Providers Payer Name Payer Address Payer Phone Subscriber Number Group Number Insured Name Patient Relationship to Insured Coverage Start Date Coverage End Date [facility] [address] [place] Niño [phone] [id number] Valentino trujillo Sherron Self - patient is the insured Medical (General) History Medical History History ICD Code Narcolepsy with cataplexy
--- OUTSIDE RECORDS SUMMARY | 2025-04-29 09:38 | XMS_ITS | Data Portability ---
Author Organization [facility], [address] Address [address] [place] [address] Care Team Providers Care Product Trainer Name Role Phone [facility] Primary Care Provider Assessment No assessment recorded. Plan of Treatment Reminders Order Date Submit Date Provider Last Modified By Organization Details Last Modified Time Details Appointments None recorded. Lab None recorded. Referral None recorded. Procedures None recorded. Surgeries None recorded. Imaging None recorded. Medication Orders albuterol sulfate HFA 90 mcg/actuati on aerosol inhaler 2023 024 [facility] #[id number], [address] [place], [address], 4 16:42:05 benzonatate 100 mg capsule 2022 023 [email or web address] 2 [facility]armacy #[id number], [address] [place], [address], 4 16:06:31 albuterol sulfate HFA 90 mcg/actuati on aerosol inhaler 2022 023 [facility] #[id number], [address] [place], [address], 3 18:55:02 prednisone 20 mg tablet 2022 023 [email or web address] 2 [facility]armacy #[id number], [address] [place], [address], 4 16:08:23 Patient TargetsNo targets recorded. Patient Instructions Encounter Date Encounter Id Patient Instructions Last Modified By Organization Details Last Modified Time 07/01/2023 [id number] cough: care instructions Not available 07/01/2023 18:54:58 bronchitis: care instructions Not available 07/01/2023 18:54:57 07/26/2024 [id number] laryngitis: care instructions [email or web address] Not available 07/26/2024 16:42:03 Reason for Referral None Reported. 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 Rula Khan null, [place] - [facility] 4 16:09:45 Narcolepsy 55731781 Active 2022 ELGIN WATTS null, [place] - [facility] 3 18:28:37 Obese 577600393 Active 2022 ELGIN WATTS null, [place] - [facility] 3 18:28:45 Polycystic ovary syndrome 962273131 Active 2022 ELGIN STEFANIE null, [place] - [facility] 3 18:28:50 Anxiety 15006877 Active 2022 ELGIN ZAERIC null, [place] - [facility] 3 18:28:57 Respiratory tract congestion and cough 053105839 Active 2023 Cassandra Sauceda, PATRIC [address] [facility] [place], [place], [address] [facility] [place] - [facility] 4 16:41:23 Problem [...] in Arterial blood by Pulse oximetry Systolic And Diastolic Provider Name and Address Organization Details Last Updated DateTime 3 157.48 cm 41 kg/m2 624474. 69 g 0 19 /min 87 /min 98.7 [degF] 98 % 98 % 120/76 mm[Hg] ELGIN WATTS [place] - [facility] 3 18:34:53 Date Recorded Body height Body mass index (BMI) Body weight Oxygen saturation Oxygen saturation in Arterial blood by Pulse oximetry Heart rate Body temperature Respiratory rate Systolic And Diastolic Provider Name and Address Organization Details Last Updated DateTime 4 157.48 cm 38.8 kg/m2 74919.5 8 g 97 % 97 % 78 /min 97.5 [degF] 18 /min 103/71 mm[Hg] Rula Bill [place] - [facility] 4 16:04:01 Social History Question Answer Notes LastModified by Memvu Details LastModified Time Tobacco Smoking Status Never Smoker ELGIN STFEANIE almanza PA Stefany [facility] 07/01/2023 18:31:14 Have You Had A Flu Shot This Season? Yes [email or web address] Information not available 07/26/2024 If No, Would You Like A Flu Shot Today? No [email or web address] Information not available 07/26/2024 What Was The Date Of Your Most Recent Tobacco Screening? 07/26/2024 [email or web address] Information not available 07/26/2024 What Is Your Relationship Status? [email or web address] Information not available 07/26/2024 Have You Recently Traveled Abroad? No Information not available 07/01/2023 Sex: Unknown Functional Status Question Answer Note LastModified by Memvu Details LastModified Time Do you use any illicit or recreational drugs? No Information not available 07/01/2023 Do you or have you ever used any other forms of tobacco or nicotine? No [email or web address] Information not available 07/26/2024 What is your level of alcohol consumption? None Information not available 07/01/2023 Are you currently employed? Yes [email or web address] Information not available 07/26/2024 Mental Status None recorded. Family History Relationship Description Onset Age of this Age Resolved Age Notes LastModified by Organization Details LastModified Time Father Hypertensive disorder [email or web address] Not available 07/01 18:29:58 Mother Hyperlipidem ia [email or web address] Not available 07/26 16:10:18 Medical History No [...] SNOMED-CT Code Diagnosis ICD10 Code Diagnosis Note [id number] [place] [address] [facility] [address] [place] [address] 07/01/2023 18:19:17 07/01/2023 18:56:08 Acute bronchitis 69698352 J20.9 Acute bronchitis is a condition of [...] primary care provider prior to their use. [id number] [place] [address] [facility] [address] [place] [address] 07/26/2024 15:52:59 07/26/2024 16:54:36 Respiratory tract congestion and cough 861296074 R09.89 Laryngitis is an inflammati on of [...] squirt the liquid. Repeat on the other side.[email or web address] w your doctor's directions for treating the [...] Recorded Advance Directives Directive None Recorded Payers Insurance Date Sequence Insurance Name Policy Number Policy Leo Covered Member ID Leo Member ID Guarantor Name 07/26/2024 1 [facility] Sherron Aquino [id number] Sherron Aquino OBGyn Episode No OBEpisode recorded.
== END 2025-04-29 09:38 | disposition home or self-care (01) ==
LOC: HO.HSMS 09:03
PROVIDERS: PCP Internal Medicine; Visit Provider Psychiatry & Neurology Neurology
DX: G47.411 Narcolepsy with cataplexy (principal); G47.33 Obstructive sleep apnea (adult) (pediatric); E34.8 Other specified endocrine disorders
CPT/HCPCS: 99214